=== PATIENT | female | born 1940 | race Caucasian/White ===

== ENCOUNTER → 2016-12-19 | Outpatient (CLI) | payer MEDICARE ==
[2016-06-17 11:30] VITALS: BP 123/57
[~2016-12-19] MED LIST: ACET325T21 PO; ALBU8.5H8 INH; AMOX1TAB61 PO; ATEN100T PO; ATOR20TA58 PO; Acetaminophen PR; Aspirin PO; BUDE10.2 IH; CIPR500T PO; CIPR500T94 PO; CLOP75TA57 PO; CYAN100031 PO; DILT180C29 PO; FERR159T3 PO; FISH1CAP PO; FURO-69 PO; HUM100VI5 SQ; HYDR-3074 PO; HYDR20TA3 PO; INSU100I16 SQ; INSU100I17 SQ; INSU100V12 SQ; LEVO100T5 PO; LEVO250T25 PO; LOSA100T6 PO; MAG DELAY64 MG PO; MAGN27TA3 PO; OMEP40CA5 PO; hydrocort PO
== END | disposition home or self-care (01) ==
LOC: LAB 08:02
PROVIDERS: ATTEND Family Medicine
DX: Z00.01 Encounter for general adult medical examination with abnormal findings (principal); Z13.6 Encounter for screening for cardiovascular disorders
CPT/HCPCS: 80061

== ENCOUNTER → 2016-12-25 | Outpatient (CLI) | payer MEDICARE ==
[2016-06-17 11:30] VITALS: BP 123/57
--- NOTE | 2016-12-25 11:07 | RAD ---
EXAM: Dual energy x-ray absorptiometry (DEXA). HISTORY: Post menopausal screening. TECHNIQUE: Dual energy x-ray absorptiometry of the lumbar spine and right hip was performed. Calculation of bone mineral density based on standard deviations above or below the expected young adult normal value (T-score) was completed. FINDINGS: The average bone mineral density associated with L1-L4 is 1.086 g/cm^2, corresponding with a T-score of -0.8. The lowest measured T score is -1.2 at L1 and L3. The average total bone mineral density associated with right hip is 0.684 g/cm^2, corresponding with a T-score of -2.7. No comparison examinations are available. IMPRESSION: 1. Osteoporosis. Fracture risk is high. Note: Definitions established by the World Health Organization: 1. Normal: T-score is -1.0 or above the expected mean for a young adult. 2. Osteopenia: T-score is between -1.0 and -2.5. 3. Osteoporosis: T-score is -2.5 or below.
--- NOTE | 2016-12-25 17:37 | RAD ---
DATE: 12/25/2016 EXAM: DIGITAL SCREEN BILAT W/CAD HISTORY: Screening study. COMPARISON: 05/06/2015 This study was interpreted with the benefit of Computerized Aided Detection (CAD). FINDINGS: Digital MLO and CC mammograms of both breasts were obtained. Comparison study is dated 05/06/2015 the breast parenchyma is composed of scattered fibroglandular densities which can obscure a lesion on mammography (breast density code B). Benign-appearing and vascular calcifications are seen within both breasts. No spiculated mass is seen. No malignant appearing calcification or area of architectural distortion is noted. Since the previous examination there has been no significant interval change. IMPRESSION: BI-RADS Category 1, negative. There is no mammographic evidence of malignancy. Routine yearly screening mammography is recommended for follow-up. BI-RADS CATEGORY: 1 NEGATIVE RECOMMENDED FOLLOW-UP: 12M 12 MONTH FOLLOW-UP PQRS compliance statement: Patient information was entered into a reminder system with a target due date 12/25/2017 for the next mammogram. Mammography is a sensitive method for finding small breast cancers, but it does not detect them all and is not a substitute for careful clinical examination. A negative mammogram does not negate a clinically suspicious finding and should not result in delay in biopsying a clinically suspicious abnormality. "Our facility is accredited by the [employer] Mammography Program."
== END | disposition home or self-care (01) ==
LOC: DXRAD 09:19
PROVIDERS: ATTEND Family Medicine
DX: Z12.31 Encounter for screening mammogram for malignant neoplasm of breast (principal); M81.0 Age-related osteoporosis without current pathological fracture; Z78.0 Asymptomatic menopausal state
CPT/HCPCS: 77080; G0202; 77067

== ENCOUNTER 2017-01-04 06:49 | Emergency (ER) | payer MEDICARE ==
[~2017-01-04] VITALS: Ht 152.4 cm; Wt 72.6 kg
--- NOTE | 2017-01-04 07:22 | PHYS DOC ---
Past History Past Medical History: CHF, COPD, Diabetes, PA, Other Past Surgical History: Cholecystectomy, Coronary Bypass Surgery, Hysterectomy, Other Smoking: Non-smoker, Second-hand Alcohol Use: None Drug Use: None Adult General Chief Complaint Chief Complaint: SHORTNESS OF BREATH HPI HPI Patient is a 76 year old female who presents with shortness of breath. Patient reports chronic dyspnea, worse over the past 48 hours. Reports dry cough, dyspnea at rest and with exertion. Reports 3 episodes of diarrhea yesterday and one today. Denies fevers or chills, chest pain, lower extremity pain or swelling , vomiting, abdominal pain, hematochezia or melena, dysuria or hematuria. Denies recent antibiotics or travel. She has history of COPD and CAD status post CABG as well as CHF on Lasix. She uses home oxygen PRN during the day & CPAP at night. No relief of symptoms with use of breathing treatments at home. Reports medication compliance. PCP is Dr. Pinto, pharmacy buyer is Dr. Vincent, stem crusher is Dr. Avina. Review of Systems Review of Systems Constitutional: Denies fever or chills Eyes: Denies change in visual acuity HENT: Denies nasal congestion or sore throat Respiratory: Reports cough and shortness of breath Cardiovascular: Denies chest pain or edema GI: Denies abdominal pain, nausea, vomiting, bloody stools, reports diarrhea : Denies dysuria or hematuria Musculoskeletal: Denies back pain or joint pain Integument: Denies rash or skin lesions Neurologic: Denies headache, focal weakness or sensory changes Allergies Allergies Allergies Coded Allergies Type Severity Reaction Last Updated Verified rofecoxib Allergy Severe Swelling 01/04/17 Yes Physical Exam Physical Exam Constitutional: Well developed, well nourished, no acute distress, non-toxic appearance. HENT: Normocephalic, atraumatic, bilateral external ears normal, oropharynx moist, nose normal. Eyes: PERRLA, EOMI, conjunctiva normal, no discharge. Neck: supple, no stridor. Cardiovascular: RRR, no murmurs, no edema. Lungs & Thorax: Diminished, LCTAB, no wheezing, no respiratory distress. Abdomen: soft, nontender, nondistended. No masses or pulsatile masses Skin: Warm, dry, no erythema, no rash. Back: No tenderness. Extremities: No tenderness, no edema. No calf tenderness or swelling Neurologic: Alert and oriented X 3, no focal deficits noted. Psychologic: Affect normal, judgement normal, mood normal. EKG EKG interpreted by me: NSR rate 88, no STEMI, RBBB with ST depression in leads V1- V3 similar to previous EKG dated 06/17/2016, T wave inversion in lead 3 without depression, no ectopy. Radiology/Procedures Radiology/Procedures PROCEDURE: CHEST AP ONLY Portable chest, 01/04/2017: History: Shortness of breath Comparison is made to a study from 06/17/2016. There has been a previous median sternotomy. A coronary artery stent is projected over the left side of the heart. There is calcific plaquing of the aorta. The pulmonary vascularity is normal. There is slight chronic elevation of the right hemidiaphragm. There is minimal linear atelectasis or scarring in the lung bases. The upper lung cosby are clear. There is no evidence of pleural fluid. IMPRESSION: Minimal basilar linear atelectasis and/or scarring. DICTATED AND SIGNED BY: SENDY ALFORD MD DATE: 01/04/17 0736[] Course & Med Decision Making Course & Med Decision Making Pertinent Labs and Imaging studies reviewed. (See chart for details) The patient presents with dyspnea. Normal O2 sat but gave oxygen by nasal cannula for comfort as she uses it PRN at home. No wheezing on exam, no distress. Obtained labs, EKG, CXR. EKG similar to previous with RBBB, no STEMI. pro BNP elevated but less significantly than previous visits (23,000 in 06/2016, previous visits 6000 & 3000), no evidence of pulmonary edema on CXR. Chronic kidney disease with baseline 1.7-2, 1.7 today. She had contaminated urine, unclear if she actually has urinary symptoms but her daughter is concerned that her symptoms represent UTI which she gets frequently. She would like to take antibiotic. Urine culture sent, reviewed previous urine culture from 06/2016 which shows klebsiella sensitive to fluoroquinolones, will give cipro. I offered admission to the hospital but she would like to go home. She felt better after resting in cool environment here - apparently had not been using AC at her home. She is requesting discharge home. Discussed with Dr. Vincent who is comfortable with plan, she had recent stress & cath, his office can call for follow up next week if any persistent issues. Recommend rest, PO hydration for diarrhea, okay to use immodium, continue breathing treatments & use of CPAP & O2, take all medications as prescribed. Follow up as needed with pulmonary in addition to cardiology. Come back for severe chest pain or shortness of breath, any otherwise worsening condition. Discharged home in stable condition. [] Dragon Disclaimer Dragon Disclaimer This chart was dictated in whole or in part using Voice Recognition software in a busy, high-work load, and often noisy Emergency Department environment. It may contain unintended and wholly unrecognized errors or omissions. Departure Departure: Impression: Primary Impression: Dyspnea Additional Impressions: Congestive heart failure COPD (chronic obstructive pulmonary disease) Chronic respiratory failure Disposition: HOME, SELF-CARE Condition: STABLE Referrals: MYRON PINTO MD (PCP) EVE VINCENT MD Patient Instructions: Chronic Obstructive Pulmonary Disease, [id number], Diarrhea, [id number], Heart Failure, [id number] Additional Instructions: You were seen in the emergency department today for diarrhea and shortness of breath. Tests here appeared stable. You were offered admission but you felt better and wanted to go home. Continue all home treatment including breathing treatments, CPAP, home oxygen, medications. You should receive a call from Dr. Vincent's office next week and can follow-up as needed. Also consider follow- up with Dr. Pinto & Dr. Avina if not improving next week. Come back for severe shortness of breath or chest pain, severe abdominal pain or fevers, any otherwise worsening condition. Scripts Ciprofloxacin Hcl (CIPROFLOXACIN HCL) 500 Mg Tablet 1 TAB PO BID for 3 Days, #6 TAB Prov: ESA ESPINOZA MD 01/04/17 Problem Qualifiers ESA ESPINOZA MD Jan 04, 2017 07:22
--- NOTE | 2017-01-04 07:27 | ACF ---
Admission Criteria Forms HEART FAILURE: COMMON COMPLICATIONS (Place 'X' for any and all applicable criteria): Ongoing inpatient care may be indicated for heart failure with 1 or more of the following (1)(2)(3)(4)(5)(6)(7)(8): [ ]I. New-onset heart failure [ ]II. Acute cardiac ischemia causing or associated with failure [ ]III. Ongoing need for care for primary condition requiring frequent therapy adjustments because of changes in cardiac function (eg, drug dosage changes for drugs that are renally metabolized) [ ]IV. Complications of heart failure, including 1 or more of the following: [ ]a) Hemodynamic instability [ ]b) Pericardial effusion [ ]c) Symptomatic pleural effusion [ ]d) Hypoxemia [ ]e) Tachypnea [ ]f) Dyspnea [ ]g) Syncope [ ]h) Altered mental status [ ]i) Acute renal insufficiency that is severe (reduction of more than 50% in estimated glomerular filtration rate from baseline) or progressive reduction of more than 25% in estimated glomerular filtration rate from baseline, with creatinine continuing to rise) [ ]j) Debilitating anasarca (eg tissue breakdown with infection, inability to void due to edema) (E) [ ]k) Clinically significant metabolic abnormalities due to heart failure (eg, new-onset metabolic acidosis) Extended stay may be needed until ALL of the following are present (1)(3)(18)(41 )(55) [ ]a) Hemodynamic stability [ ]b) Stable and effective diuretic regimen established (or patient on stable dialysis regimen if in chronic renal failure) [ ]c) Volume status acceptable on oral medication [ ]d) Breathing comfortably at rest [ ]e) Saturation of arterial oxygen greater than 90% or at acceptable baseline [ ]f) Pulmonary edema absent or improved [ ]g) Peripheral or sacral edema absent or improved [ ]h) Renal function stable and manageable at a lower level of care [ ]i) Complications (eg, pleural effusion) resolved or manageable at a lower level of care [ ]g) Patient or caregiver has received written discharge instructions or educational material addressing activity level, diet, discharge medications, follow-up appointment, weight monitoring, and what to do if symptoms worsen.(25)(26) The original [facility] CommitChange content created by Chay Sandoval has been revised. The portions of the content which have been revised are identified through the use of italic text, and [facility] has neither reviewed nor approved the modified material.All other unmodified content is copyright [facility]. Please see references footnoted in the original [facility] edition 2015 KEESHA BLACKMON Jan 04, 2017 07:27
[2017-01-04 07:36] LABS: BASO # 0.1 x10^3/uL (0.0-0.2); BASO % 1 % (0-3); EOS # 0.2 x10^3/uL (0.0-0.7); EOS % 2 % (0-3); HEMATOCRIT 43.2 % (36.0-47.0); LYMPH # 2.1 x10^3/uL (1.0-4.8); LYMPH % 23 % (24-48); MEAN CORPUSCULAR HEMOGLOBIN 31 pg (25-35); MEAN CORPUSCULAR HGB CONC 35 g/dL (31-37); MEAN CORPUSCULAR VOLUME 88 fL (79-100); MONO # 1.3 x10^3/uL (0.0-1.1); MONO % 14 % (0-9); NEUT # 5.7 x10^3uL (1.8-7.7); NEUT % 61 % (31-73); PLATELET COUNT 137 x10^3/uL (140-400); RED BLOOD COUNT 4.89 x10^6/uL (3.50-5.40); RED CELL DISTRIBUTION WIDTH 15.5 % (11.5-14.5); WHITE BLOOD COUNT 9.4 x10^3/uL (4.0-11.0)
--- NOTE | 2017-01-04 07:40 | RAD ---
Portable chest, 01/04/2017: History: Shortness of breath Comparison is made to a study from 06/17/2016. There has been a previous median sternotomy. A coronary artery stent is projected over the left side of the heart. There is calcific plaquing of the aorta. The pulmonary vascularity is normal. There is slight chronic elevation of the right hemidiaphragm. There is minimal linear atelectasis or scarring in the lung bases. The upper lung cosby are clear. There is no evidence of pleural fluid. IMPRESSION: Minimal basilar linear atelectasis and/or scarring.
[2017-01-04 07:59] LABS: ALBUMIN 3.7 g/dL (3.4-5.0); ALBUMIN/GLOBULIN RATIO 0.9 (1.0-1.7); CALCIUM 10.5 mg/dL (8.5-10.1); CREATININE 1.7 mg/dL (0.6-1.0); GFR 29.3; TOTAL BILIRUBIN 1.1 mg/dL (0.2-1.0); TOTAL PROTEIN 7.9 g/dL (6.4-8.2)
[2017-01-04 08:52] LABS: BILIRUBIN,URINE NEG (NEG); CLARITY,URINE HAZY; COLOR,URINE YELLOW; GLUCOSE,URINE NEG (NEG); NITRITE,URINE POS (NEG); UROBILINOGEN,URINE 0.2 mg/dL (0.2 mg/dL)
[2017-01-04 08:53] LABS: BACTERIA,URINE MOD /HPF (0-FEW); GRANULAR CASTS,URINE OCC /HPF; HYALINE CASTS, URINE FEW /HPF; SQUAMOUS EPITHELIAL CELL,UR MANY /LPF
--- NOTE | 2017-01-04 08:56 | EKG ---
[address] [address] Test Date: 2017-01-04 Test Time: 07:14:58 Pat Name: TRUNG RUSS Department: Room: Gender: F [employer] Sales [employer]: : [id number] Requested By: ESA ESPINOZA Order Number: [id number] Reading MD: Measurements Intervals [place] Rate: 88 P: 34 WI: 144 QRS: -156 QRSD: 128 T: -9 QT: 416 QTc: 507 Interpretive Statements SINUS RHYTHM ABNORMAL RIGHT SUPERIOR AXIS DEVIATION RIGHT BUNDLE BRANCH BLOCK RVH WITH REPOLARIZATION ABNORMALITY QRS(T) CONTOUR ABNORMALITY CONSIDER ANTEROSEPTAL MYOCARDIAL DAMAGE RI6.01 Unconfirmed report No previous ECG available for comparison
[2017-01-04] MEDS ORDERED: IPRATRPIUM/ALBUTEROL 0.5/2.5MG 3 ML NEBU. NEB ONE (09:00)
[2017-01-04] MEDS ORDERED: CIPR500T PO (09:03)
[2017-01-04 09:07] VITALS: BP 145/77
== END 2017-01-04 09:10 | disposition home or self-care (01) ==
LOC: ER 06:49
DX: R06.00 Dyspnea, unspecified (principal); I50.9 Heart failure, unspecified; E11.9 Type 2 diabetes mellitus without complications; I25.2 Old myocardial infarction; J44.9 Chronic obstructive pulmonary disease, unspecified; J96.10 Chronic respiratory failure, unspecified whether with hypoxia or hypercapnia; Z95.1 Presence of aortocoronary bypass graft; Z77.22 Contact with and (suspected) exposure to environmental tobacco smoke (acute) (chronic); Z88.8 Allergy status to other drugs, medicaments and biological substances
CPT/HCPCS: 36415; 71010; 80053; 81001; 83880; 84484; 85027; 87086; 87186; 93005; 94640; 99285; J7620

== ENCOUNTER → 2017-02-07 | Outpatient (CLI) | payer MEDICARE ==
[2017-02-07 09:04] LABS: BASO # 0.1 x10^3/uL (0.0-0.2); BASO % 1 % (0-3); EOS # 0.2 x10^3/uL (0.0-0.7); EOS % 2 % (0-3); HEMATOCRIT 36.1 % (36.0-47.0); HEMOGLOBIN 12.3 g/dL (12.0-15.5); LYMPH # 1.8 x10^3/uL (1.0-4.8); LYMPH % 18 % (24-48); MEAN CORPUSCULAR HEMOGLOBIN 30 pg (25-35); MEAN CORPUSCULAR HGB CONC 34 g/dL (31-37); MEAN CORPUSCULAR VOLUME 89 fL (79-100); MONO # 0.6 x10^3/uL (0.0-1.1); MONO % 6 % (0-9); NEUT % 72 % (31-73); PLATELET COUNT 150 x10^3/uL (140-400); RED BLOOD COUNT 4.07 x10^6/uL (3.50-5.40); RED CELL DISTRIBUTION WIDTH 15.2 % (11.5-14.5); WHITE BLOOD COUNT 9.7 x10^3/uL (4.0-11.0)
[2017-02-07 09:13] LABS: ALBUMIN 3.6 g/dL (3.4-5.0); CALCIUM 9.5 mg/dL (8.5-10.1); CREATININE 1.9 mg/dL (0.6-1.0); GFR 25.8; MAGNESIUM 1.5 mg/dL (1.8-2.4); POTASSIUM 4.2 mmol/L (3.5-5.1)
[2017-02-07 23:13] LABS: TOTAL SERUM CREATININE 1.68 mg/dL (0.57-1.00); TOTAL URINE CREATININE 65.8 mg/dL (Not Estab.); UR PROTEIN 26.3 mg/dL (Not Estab.)
[2017-02-08 13:14] LABS: CALCIUM PTH 9.9 mg/dL (8.7-10.3); CREATININE PTH 1.71 mg/dL (0.57-1.00); PTH INTACT 411 pg/mL (15-65)
== END | disposition home or self-care (01) ==
LOC: LAB 08:43
PROVIDERS: ATTEND Nurse Practitioner Family
DX: I12.9 Hypertensive chronic kidney disease with stage 1 through stage 4 chronic kidney disease, or unspecified chronic kidney disease (principal); N18.3 Chronic kidney disease, stage 3 (moderate); E11.22 Type 2 diabetes mellitus with diabetic chronic kidney disease; N25.81 Secondary hyperparathyroidism of renal origin; E83.52 Hypercalcemia; D63.1 Anemia in chronic kidney disease; N17.9 Acute kidney failure, unspecified; Z68.27 Body mass index [BMI] 27.0-27.9, adult
CPT/HCPCS: 36415; 80069; 82306; 82575; 83735; 83970; 84156; 85027